=== PATIENT | female | born 1955 | race Caucasian/White ===

== ENCOUNTER 2018-05-18 12:59 | Emergency (ER) | payer OTHER ==
[~2018-05-18] VITALS: Ht 154.9 cm; Wt 83.9 kg
[~2018-05-18 12:59] MED LIST: ASPIR 8181 MG PO; ASPIRIN325 PO; AUGMENTIN 875875 MG PO; BACTRIM DS TAB1 EACH PO; CALCIUM 600 +1 EAC1 PO; CARVEDILOL3.125 MG PO; CEFTRIAXON2 GM/50 ML IV; CIPRO500 MG PO; COLACE100 MG PO; COREG3.125 MG PO; CYCLOBENZAPRINE10 MG PO; DEXACIDIN EYE DR5 ML OP; DOXYCYCLINE 10100 MG PO; FOSAMAX 70 MG T70 M1 PO; FOSAMAX 70 MG T70 MG PO; GLUCOPHAGE XR750 MG PO; HYDROCODON-ACE1 EAC7 PO; IRON325 PO; JANUVIA100 MG PO; LORTAB 5-325 M1 EACH PO; METAMUCIL PAC1 UDPKT PO; METFORMIN HCL500 MG PO; MILK OF MA2400 MG/10 PO; MOBIC15 MG PO; NAPROSYN500 MG PO; NEURONTIN 300M300 M2 PO; NORCO 5-325 TA1 EACH PO; OXAYDO5 MG PO; OXYCODONE HCL 55 MG PO; OXYCONTIN10 M1 PO; PERCOCET PO; PRINIVIL20 MG PO; RANITIDINE HCL300 M1 PO; SIMVASTATIN40 MG PO; TRAMADOL 50 MG50 MG PO; TRANSDERM-SCO1 PATC1 TRANSDERM; ULTRAM 50MG TAB50 MG PO; VANCOMYCIN1 GM/1001 IV; XARELTO10 MG PO; ZANAFLEX4 MG PO; ZOCOR20 MG PO; ZOFRAN ODT4 MG PO
[2018-05-18] MEDS ORDERED: TRAMADOL 50 MG50 MG PO (13:14)
[2018-05-18] MEDS ORDERED: MOBIC15 MG PO (13:14)
[2018-05-18 13:43] LABS: URINE BILIRUBIN NEGATIVE (Negative); URINE BLOOD NEGATIVE (Negative); URINE CLARITY CLEAR; URINE COLOR YELLOW; URINE GLUCOSE-RANDOM NEGATIVE (Negative); URINE KETONES NEGATIVE (Negative); URINE LEUKOCYTES-REFLEX NEGATIVE (Negative); URINE NITRITE-REFLEX NEGATIVE (Negative); URINE PROTEIN NEGATIVE (Negative); URINE UROBILINOGEN 0.2 E.U./dl (0.2-1.0)
[2018-05-18 14:24] LABS: ABSOLUTE BASOPHILS 0.1 thou/uL (0.0-0.2); ABSOLUTE EOSINOPHILS 0.2 thou/uL (0.0-0.7); ABSOLUTE LYMPHOCYTES 1.9 thou/uL (0.8-5.3); ABSOLUTE MONOCYTES 0.4 thou/uL (0.0-1.2); ABSOLUTE NEUTROPHILS 5.3 thou/uL (1.6-8.1); BASOPHILS 1.2 %; EOSINOPHILS 3.1 %; HEMATOCRIT 35.7 % (37.0-47.0); HEMOGLOBIN 11.8 gm/dL (12.0-15.0); MCH 26.8 pg (26.0-34.0); MCV 81.3 fL (80.0-100.0); MONOCYTES 4.9 %; MPV 7.4 fl. (7.2-11.1); NUCLEATED RBCS 0 /100WBC; PLATELET COUNT* 355 thou/uL (150-400); POLYS 66.8 %; RBC 4.39 mil/uL (4.20-5.00); RDW-CV 14.9 % (10.5-14.5); WBC 7.9 thou/uL (4.0-11.0)
[2018-05-18 14:38] LABS: ANION GAP 10 mmol/L (7-16); BUN 13 mg/dL (7-18); CALCIUM 9.4 mg/dL (8.5-10.1); CHLORIDE 98 mmol/L (98-107); CO2 29 mmol/L (21-32); CREATININE 0.8 mg/dL (0.6-1.3); GLUCOSE 127 mg/dL (70-99); POTASSIUM 3.9 mmol/L (3.5-5.1); SODIUM 137 mmol/L (136-145)
[2018-05-18 14:44] LABS: ALBUMIN 3.6 g/dL (3.4-5.0); ALKALINE PHOSPHATASE 64 U/L (46-116); LIPASE 526 U/L (73-393); SGOT 33 U/L (15-37); SGPT 39 U/L (30-65); TOTAL BILIRUBIN 0.3 mg/dL (<0.1-1.0); TOTAL PROTEIN 7.8 g/dL (6.4-8.2); TROPONIN-I LEVEL <0.06 ng/mL (<0.06)
[2018-05-18] MEDS ORDERED: ANTIVERT25 MG PO (15:43)
[2018-05-18] MEDS ORDERED: ONDANSETRON HCL4 M2 PO (15:43)
[2018-05-18 15:54] VITALS: BP 151/70
--- NOTE | 2018-05-19 10:13 | EKG ---
[place] [address] ELECTROCARDIOGRAM REPORT Name: MABEL VALDERRAMA Room: [facility]#: [id number] Admission: 05/18/18 Attend Phys: Discharge: 05/18/18 Date of : 57 Report #: [id number] THIS REPORT FOR: //name// [facility] ED Test Date: 2018-05-18 Test Time: 13:40:27 Pat Name: MABEL VALDERRAMA Department: Room: Gender: F Patternmaker Pressure Cast: : 1955 Requested By: Lacey Contreras Order Number: [id number] MD: Srinivasan Prather Measurements Intervals [place] Rate: 83 P: 14 W[place]: 174 QRS: 35 QRSD: 103 T: 26 QT: 403 QTc: 474 Interpretive Statements Sinus rhythm Borderline T wave abnormalities Compared to ECG 10/19/2016 10:55:09 no change Electronically Signed On 05-19-2018 10:13:15 [employer] by Srinivasan Prather [email or web address] <ELECTRONICALLY SIGNED> By: Srinivasan Prather MD, [facility] 05/19/18 1013 [id number] [id number] Srinivasan Prather MD, FACC /EPI
== END 2018-05-18 15:56 | disposition home or self-care (01) ==
LOC: M.ERS 12:59
PROVIDERS: Physician Assistant
DX: I10 Essential (primary) hypertension (principal); R42 Dizziness and giddiness; E11.9 Type 2 diabetes mellitus without complications; M19.90 Unspecified osteoarthritis, unspecified site; Z90.710 Acquired absence of both cervix and uterus; Z91.040 Latex allergy status

== ENCOUNTER → 2020-11-24 | Outpatient (CLI) | payer OTHER ==
[~2020-11-24] MED LIST changes: +ANTIVERT25 MG PO; +ONDANSETRON HCL4 M2 PO
== END ==
LOC: M.RAD 11-18 11:10
PROVIDERS: ATTEND Family Medicine
DX: Z12.31 Encounter for screening mammogram for malignant neoplasm of breast (principal); M81.0 Age-related osteoporosis without current pathological fracture; N64.89 Other specified disorders of breast